=== PATIENT | male | born 1950 | race Caucasian/White ===

== ENCOUNTER 2019-01-24 09:57 | Inpatient (IN) | payer OTHER ==
[~2019-01-24] VITALS: Ht 188 cm; Wt 119.9 kg
[2019-01-24] MEDS ORDERED: SODIUM CHLORIDE 0.9% 1,000 ML IV ONE ×2 (10:29)
[2019-01-24] MEDS ORDERED: cefTRIAXone 1GM/50ML D5W 50 ML IV ONE (10:30)
[2019-01-24 11:20] LABS: Basophils # (auto) 0 uL; Basophils % (auto) 0.3 % (0.0-2.0); Eosinophils # (auto) 0 uL; Eosinophils % (auto) 0.1 % (0.0-7.0); Hematocrit 42.9 % (41.0-53.0); Hemoglobin 14.2 g/dL (13.5-17.5); Lymphocytes # (auto) 0.8 uL; Lymphocytes % (auto) 7.8 % (10.0-50.0); Mean Corpuscular Hemoglobin 32.3 pg (28.0-32.0); Mean Corpuscular Hgb Conc. 33.1 g/dL (32.0-36.0); Mean Corpuscular Volume 97.7 fL (80.0-100.0); Monocytes # (auto) 0.9 uL; Monocytes % (auto) 9.5 % (0.0-12.0); Neutrophils # (auto) 8.1 uL; Neutrophils % (auto) 82.3 % (37.0-80.0); Nucleated Red Blood Cells % 0.1 %; Platelet Count (auto) 159 10^3/uL (140-450); Red Blood Cells 4.39 10^6/uL (4.5-5.90); Red Cell Distribution Width 12.6 % (11.8-14.3); White Blood Cell 9.9 10^3/uL (4.4-10.8)
[2019-01-24 11:40] LABS: Albumin 2.9 g/dL (3.4-5.0); Calcium 9.3 mg/dL (8.5-10.1); Magnesium 2.2 mg/dL (1.6-2.6); Potassium 4.8 mmol/L (3.5-5.1)
[2019-01-24 11:45] LABS: BUN/Creatinine Ratio 15.9; Bilirubin, Total 0.5 mg/dL (0.2-1.0); Total Protein 7.9 g/dL (6.4-8.2)
[2019-01-24 11:50] LABS: INR 0.99 (0.9-1.15); Partial Thromboplastin Time 27.2 sec (23.78-33.04); Prothrombin Time 10.6 sec (9.27-12.13)
[2019-01-24 14:08] LABS: Urine Bacteria NONE SEEN /hpf (None Seen); Urine Blood Negative /uL (Negative); Urine Specific Gravity 1.024 (1.001-1.035); Urine WBC 1 /hpf (0 - 3)
[2019-01-24] MEDS ORDERED: IOHEXOL 350 MG/ML 100ML IJ ONE (14:08)
[2019-01-24] MEDS ORDERED: ENOXAPARIN SOD 80 MG/0.8ML SYRINGE SC ONE (14:15)
[2019-01-24] MEDS ORDERED: FUROSEMIDE 40 MG/4 ML VIAL IV ONE (14:15)
[2019-01-24] MEDS ORDERED: InsuLIN REG 1unit/0.01ml Soln (100units/ml) IV ONE (14:15)
[2019-01-24] MEDS ORDERED: DEXTROSE (50%) 50ML SYRG IV PRN (17:00)
[2019-01-24] MEDS ORDERED: MORPHINE SULF INJ 2 MG/ML SYRINGE 1ML IV PRN ×2 (17:00)
[2019-01-24] MEDS ORDERED: HYDROcodone-ACET 5/325MG TAB PO PRN (17:00)
[2019-01-24] MEDS ORDERED: DILTIAZEM HCL 120MG ER CAP PO ONE (17:00)
[2019-01-24] MEDS ORDERED: NITROGLYCERIN 0.4 MG SL TAB SL PRN (17:00)
[2019-01-24] MEDS ORDERED: VANCOMYCIN PER PHARMACY 0 MG IV SCH (17:00)
[2019-01-24] MEDS ORDERED: ACETAMINOPHEN 500 MG TAB PO PRN (17:00)
[2019-01-24] MEDS ORDERED: ONDANSETRON HCL 4 MG/2 ML VIAL IV PRN (17:00)
[2019-01-24] MEDS ORDERED: hydrALAZINE HCL 20 MG/ML VL IV PRN (17:00)
[2019-01-24] MEDS: SODIUM CHLORIDE 0.9% 1,000 ML IV SCH (17:47)
[2019-01-24] MEDS: InsuLIN REG 1unit/0.01ml Soln (100units/ml) SC SCH ×2 (17:59→23:07)
[2019-01-24] MEDS: ACCU-CHEK COMFORT CURVE STRIP VI SCH ×2 (17:59→23:07)
[2019-01-24] MEDS: VANCOMYCIN 1,250 MG in D5W 5% 250 ML IV SCH (18:53)
[2019-01-24] MEDS: ALBUTEROL SULF 2.5 MG/0.5ML(0.5%) NEB SOLN NEB SCH (19:45)
[2019-01-24] MEDS: IPRATROPIUM BROM 0.5 MG/2.5ML INH SOL NEB SCH (19:45)
[2019-01-24] MEDS ORDERED: methylPREDNISolone SOD SUCC 125 MG/2 ML VL IV ONE (19:45)
--- NOTE | 2019-01-24 19:45 | NUR ---
Respiratory note: PT APPEARED SOB ON NC6L. TX ADMINISTERED AT THIS TIME. BS DIM EXP WHEEZES T/O. SPO2 WAS 87%. POST TX WHEEZING DIMINISHED AND TX WAS EFFECTIVE. TITRATED LPM TO 4LPM AND NICOLE WELL. RN SPOKE WITH ABOUT GETTING PULMICORT ADDED TO SCHEDULED TX'S. PT STATES HE WEARS NC4L AT HOME AND TAKES TX'S, NORMAL SPO2 @ HOME IS 91-92%.
[2019-01-24] MEDS: PIPERACILLIN-TAZOB 3.375GM 100 ML IV SCH ×2 (20:15→23:07)
[2019-01-24] MEDS ORDERED: BUDESONIDE (INHALATION) 0.5 MG/2 ML NEB ONE (20:40)
[2019-01-24 21:17] VITALS: BP 111/66
[2019-01-24] MEDS: BUDESONIDE (INHALATION) 0.5 MG/2 ML NEB NEB SCH (21:17)
--- NOTE | 2019-01-24 21:37 | NUR ---
Admission Note Pt admitted to room 240-B in stable cond. Pt oriented to room and procedures and POC discussed with pt and pt verbalizes understanding. Bed is low, wheels are locked, and call light is with in reach.
[2019-01-24 22:00] VITALS: BP 106/69
[2019-01-24 22:34] VITALS: BP 106/69
[2019-01-24] MEDS: DOCUSATE SOD 100 MG CAP PO SCH (23:06)
[2019-01-24] MEDS: APIXABAN 2.5 MG TAB PO SCH (23:06)
[2019-01-25] MEDS: IPRATROPIUM BROM 0.5 MG/2.5ML INH SOL NEB SCH ×4 (00:20→18:48)
[2019-01-25] MEDS: ALBUTEROL SULF 2.5 MG/0.5ML(0.5%) NEB SOLN NEB SCH ×4 (00:20→18:47)
[2019-01-25] MEDS: SODIUM CHLORIDE 0.9% 1,000 ML IV SCH ×3 (03:00→23:11)
--- NOTE | 2019-01-25 03:35 | NUR ---
All leads and wires changed x 2 on tele box and still not picking up heart on the monitor. Pt is alert and awake and no s/s of any distress noted.
[2019-01-25 05:00] VITALS: BP 105/69
[2019-01-25 05:56] LABS: Basophils # (auto) 0 uL; Basophils % (auto) 0.1 % (0.0-2.0); Eosinophils # (auto) 0 uL; Hematocrit 40.1 % (41.0-53.0); Hemoglobin 13.4 g/dL (13.5-17.5); Lymphocytes # (auto) 0.5 uL; Lymphocytes % (auto) 6.8 % (10.0-50.0); Mean Corpuscular Hemoglobin 32.5 pg (28.0-32.0); Mean Corpuscular Hgb Conc. 33.5 g/dL (32.0-36.0); Mean Corpuscular Volume 97.1 fL (80.0-100.0); Monocytes # (auto) 0 uL; Monocytes % (auto) 0.6 % (0.0-12.0); Neutrophils # (auto) 6.8 uL; Neutrophils % (auto) 92.5 % (37.0-80.0); Nucleated Red Blood Cells % 0.1 %; Platelet Count (auto) 146 10^3/uL (140-450); Red Blood Cells 4.13 10^6/uL (4.5-5.90); Red Cell Distribution Width 12.7 % (11.8-14.3); White Blood Cell 7.4 10^3/uL (4.4-10.8)
[2019-01-25] MEDS: PIPERACILLIN-TAZOB 3.375GM 100 ML IV SCH ×3 (06:02→19:29)
[2019-01-25] MEDS: BUDESONIDE (INHALATION) 0.5 MG/2 ML NEB NEB SCH ×2 (06:14→18:48)
[2019-01-25 06:18] LABS: Albumin 2.6 g/dL (3.4-5.0); Calcium 9.1 mg/dL (8.5-10.1)
[2019-01-25 06:27] LABS: BUN/Creatinine Ratio 18.6; Bilirubin, Total 0.7 mg/dL (0.2-1.0); Total Protein 7.3 g/dL (6.4-8.2)
[2019-01-25 06:37] LABS: Potassium 5.7 mmol/L (3.5-5.1)
--- NOTE | 2019-01-25 06:41 | NUR ---
Hospitalist paged now for critical lab results, K+ = 5.7 and Troponin 0.511 and Neelam Tavarez [facility] returned page now, status report given and new orders to redraw labs and call with results.
--- NOTE | 2019-01-25 06:50 | NUR ---
Pharmacy called for Vancomycin not available. Addendum: 01/25/19 at 0712 by KIRA RODRIGUEZ RN Called the Pharmacy for the Vanco that is not available on the unit.
[2019-01-25] MEDS: ACCU-CHEK COMFORT CURVE STRIP VI SCH ×4 (07:11→21:36)
[2019-01-25] MEDS: InsuLIN REG 1unit/0.01ml Soln (100units/ml) SC SCH ×4 (07:11→21:39)
--- NOTE | 2019-01-25 07:20 | NUR ---
Opening Shift Note Assumed care of patient, awake and alert. No S/S of distress/SOB or pain. Instructed on POC and to call for assist PRN, will continue to monitor for changes Q1hr and PRN.
[2019-01-25 07:56] LABS: Albumin 2.6 g/dL (3.4-5.0); Calcium 9.2 mg/dL (8.5-10.1)
[2019-01-25 08:00] VITALS: BP 112/71
[2019-01-25 08:00] LABS: BUN/Creatinine Ratio 19.6; Bilirubin, Total 0.7 mg/dL (0.2-1.0); Total Protein 7.3 g/dL (6.4-8.2)
[2019-01-25 08:20] LABS: Potassium 5.6 mmol/L (3.5-5.1)
--- NOTE | 2019-01-25 08:29 | NUR ---
Hospitalist reyna Palmer still critical at 5.6. Addendum: 01/25/19 at 0613 by JOSE TORREZ RN Reicieved call back from hospitalistmarvin received
[2019-01-25 08:30] VITALS: BP_SYST 107; BP_SYST 112; BP_DIAS 68; BP_DIAS 71
[2019-01-25] MEDS: VANCOMYCIN 1,250 MG in D5W 5% 250 ML IV SCH ×2 (08:37→17:45)
[2019-01-25] MEDS ORDERED: SODIUM BICARBONATE 8.4 % INJ 50ML VIAL IV ONE (08:45)
[2019-01-25] MEDS ORDERED: CALCIUM GLUC 4.65meq/50ml D5AE 50 ML IV ONE (08:45)
[2019-01-25] MEDS ORDERED: InsuLIN REG 1unit/0.01ml Soln (100units/ml) IV ONE (08:45)
--- NOTE | 2019-01-25 10:18 | NUR ---
WOUND CARE NOTE: Wound care in to see patient per wound care request regarding "Bilateral Lower Extremity Cellulitis" that are noted present on admission. ED nurse took photograph of patient's BLE wounds upon admission for reference. Patient is 68 years old male with admitting diagnosis of Cellulitis to Bilateral Lower Extremity. Patient is resting in bed in Rm. 240B. He's awake, alert and oriented. He's in no stated pain at this time. Patient is able to assist in turning and repositioning. His current Artemio score is 17. Skin/wound assessment done with the assistance of patient' s nurse, CHINEDU Richter. Noted patient's BLE has edema, erythema with yellow, dry, hyperkeratotic crusty skin, moderate serous drainage noted with foul odor noted. His toe nails are thick, long and yellow. Open full thickness ulceration with no measurable depth noted to his Rt calf (7 x 10cm) and Lt. calf (9x8cm) R calf wound has serous drainage, L calf wound is has minimal sanguinous drainage. Patient states that he has has the BLE wounds "months ago" but he has not seen a doctor for it. Cleansed patient's BLE with wound cleanser, patted dry with gauze, applied Thera honey gauze to open wounds, covered with absorbent (Abd) pads. Applied Hydraguard cream to dry hyperkeratotic skin, wrapped with Kerlix and secured with tape. Wrapped legs with elastic bandages per MD order. 3x3cm dry scabbed lesion noted to his Rt upper arm, area is clean and dry, left open to air. Advised patient to show his dry wound to his doctor, he may need to forensic scientist as out patient. Patient's back and chest has dry, red patchy lesion, he states he has history of psoriasis. Patient's sacral and back has intact skin with blanchable redness to sacrum. Advised bedside nurse to apply Barrier cream to sacral/buttocks as preventative BID/PRN per MD order. Patient tolerated well. Patient's education given regarding skin/wound care,verbalized understanding. Bed in low position, call no on hand, bed alarm on. RECOMMENDATION: EOD/PRN dressing change to BLE; BID/PRN cleaning and application of Barrier cream to sacral/buttocks as preventative per MD order,frequent turning and repositioning schedule as condition permits, redistribute pressure points with pillows, elevate affected extremity on pillows, continue monitoring by wound care while patient is hospitalized. Addendum: 01/25/19 at 1425 by Earlene Russell RN Amended: Links added.
[2019-01-25] MEDS: PANTOPRAZOLE 40 MG/10 ML VIAL IV SCH (10:26)
[2019-01-25] MEDS: APIXABAN 2.5 MG TAB PO SCH ×2 (10:26→21:35)
[2019-01-25] MEDS: ASPirin-EC 81 mg tab PO SCH (10:27)
[2019-01-25] MEDS: ENOXAPARIN SOD 40 MG/0.4 ML SYRINGE SC SCH (10:27)
[2019-01-25] MEDS: DOCUSATE SOD 100 MG CAP PO SCH ×2 (10:27→21:35)
[2019-01-25] MEDS: DILTIAZEM HCL 120MG ER CAP PO SCH (10:27)
[2019-01-25 12:30] VITALS: BP 99/61
[2019-01-25 18:01] VITALS: BP 107/68
--- NOTE | 2019-01-25 19:30 | NUR ---
OPENING NOTE REPORT RECEIVED FROM DAY SHIFT RN PATIENT IS RESTING IN BED, A/OX4, ABLE TO ANSWER ALL QUESTIONS APPROPRIATELY. PHYSICAL ASSESSMENT DONE-SEE INTERVENTIONS. DRESSINGS C/D/I TO BILATERAL LOWER EXTREMITIES. POC FOR TONIGHT DISCUSSED WITH PATIENT, ALL QUESTIONS ANSWERED. WILL MONITOR Q1H PRN THROUGHOUT SHIFT, CALL LIGHT WITHIN REACH.
--- NOTE | 2019-01-25 21:00 | NUR ---
PATIENT REQUESTS NEW IV PLACEMENT CURRENT IV IN PLACE TO RIGHT AC, PATIENT STATES IT IS UNCOMFORTABLE. IV removal IV DC'd with clean sterile technique, catheter fully intact. Pressure dressing applied to site. Patient tolerated well.
--- NOTE | 2019-01-25 21:15 | NUR ---
IV insertion IV access obtained, via clean sterile technique by inserting 20 gauge catheter at LEFT FOREARM after 1 attempt. IV secured properly. No trauma to site. Patient tolerated well.
[2019-01-25 22:00] VITALS: BP 114/70
[2019-01-26] MEDS: PIPERACILLIN-TAZOB 3.375GM 100 ML IV SCH ×4 (00:03→17:47)
[2019-01-26 05:00] VITALS: BP 123/73
--- NOTE | 2019-01-26 05:20 | NUR ---
WHEEL AND CASTER REPAIRER AT BEDSIDE FOR VANCO TROUGH DRAW
[2019-01-26] MEDS: ALBUTEROL SULF 2.5 MG/0.5ML(0.5%) NEB SOLN NEB SCH ×3 (05:45→18:49)
[2019-01-26] MEDS: IPRATROPIUM BROM 0.5 MG/2.5ML INH SOL NEB SCH ×3 (05:45→18:49)
[2019-01-26] MEDS: BUDESONIDE (INHALATION) 0.5 MG/2 ML NEB NEB SCH ×2 (05:45→19:13)
--- NOTE | 2019-01-26 05:59 | NUR ---
CALLED DOWN TO LAB RE: MORNING VANCO TROUGH PER BACK LAB PERSONNEL, "WE WILL HAVE TO RESULTS IN ABOUT 25 MINUTES" THIS RN STRESSED ON THE IMPORTANCE OF A TIMELY RESULT, REFINERY OPERATOR HELPER STATES, "WELL I JUST RECEIVED IT SO I CAN'T GET THE RESULT ANY SOONER"
[2019-01-26] MEDS: VANCOMYCIN 1,250 MG in D5W 5% 250 ML IV SCH (06:22)
[2019-01-26] MEDS: ACCU-CHEK COMFORT CURVE STRIP VI SCH ×4 (06:38→22:17)
[2019-01-26] MEDS: InsuLIN REG 1unit/0.01ml Soln (100units/ml) SC SCH ×4 (06:39→22:29)
--- NOTE | 2019-01-26 07:28 | NUR ---
0600 margarita not hung: marie still running endorsed to day shift RN
--- NOTE | 2019-01-26 07:28 | NUR ---
CLOSING NOTE REPORT ENDORSED TO DAY SHIFT RN PT IS RESTING IN BED, NO S/S OF DISTRESS NOTED NO INCIDENT THROUGHOUT NIGHT, CALL LIGHT WITHIN REACH FALL PRECAUTIONS IN PLACE
[2019-01-26 09:00] VITALS: BP 112/71
[2019-01-26] MEDS: PANTOPRAZOLE 40 MG/10 ML VIAL IV SCH (09:02)
[2019-01-26] MEDS: DOCUSATE SOD 100 MG CAP PO SCH ×2 (09:03→22:00)
[2019-01-26] MEDS: ENOXAPARIN SOD 40 MG/0.4 ML SYRINGE SC SCH (09:03)
[2019-01-26] MEDS: APIXABAN 2.5 MG TAB PO SCH ×2 (09:03→22:17)
[2019-01-26] MEDS: ASPirin-EC 81 mg tab PO SCH (09:04)
[2019-01-26] MEDS: DILTIAZEM HCL 120MG ER CAP PO SCH (09:04)
[2019-01-26] MEDS: SODIUM CHLORIDE 0.9% 1,000 ML IV SCH ×2 (09:05→19:30)
--- NOTE | 2019-01-26 10:00 | NUR ---
PT REPORTS THAT HE IS DOING FINE AND DOES NOT NEED P.T.
--- NOTE | 2019-01-26 11:41 | NUR ---
NUTRITION CONSULT/ASSESSMENT NOTES Please refer to link notes of nutrition screen form filed under the intervention section of the plan of care for further details. Est. Needs: 2100 kcal to 2650 kcal (18-23 kcal/kgBW), 93 gms to 116 gms pro (0.8-1.0 gms/kgBW). Will continue to monitor pertinent labs and reassess nutrient need prn Thank you for this consult. Addendum: 01/26/19 at [address] Amended: Links added.
[2019-01-26 13:00] VITALS: BP 133/75
[2019-01-26 17:00] VITALS: BP 110/71
[2019-01-26] MEDS: VANCOMYCIN 750 MG in D5W 5% 250 ML IV SCH (21:14)
[2019-01-26 22:15] VITALS: BP 117/73
[2019-01-27] MEDS: PIPERACILLIN-TAZOB 3.375GM 100 ML IV SCH ×4 (00:17→17:28)
[2019-01-27 04:38] VITALS: BP 114/69
[2019-01-27] MEDS: SODIUM CHLORIDE 0.9% 1,000 ML IV SCH ×2 (05:00→15:00)
[2019-01-27] MEDS: InsuLIN REG 1unit/0.01ml Soln (100units/ml) SC SCH ×3 (06:45→17:00)
[2019-01-27] MEDS: ACCU-CHEK COMFORT CURVE STRIP VI SCH ×3 (06:45→17:22)
[2019-01-27] MEDS: BUDESONIDE (INHALATION) 0.5 MG/2 ML NEB NEB SCH ×2 (07:13→18:44)
[2019-01-27] MEDS: ALBUTEROL SULF 2.5 MG/0.5ML(0.5%) NEB SOLN NEB SCH ×3 (07:13→18:44)
[2019-01-27] MEDS: IPRATROPIUM BROM 0.5 MG/2.5ML INH SOL NEB SCH ×3 (07:13→18:43)
[2019-01-27] MEDS: VANCOMYCIN 750 MG in D5W 5% 250 ML IV SCH (08:53)
[2019-01-27] MEDS: PANTOPRAZOLE 40 MG/10 ML VIAL IV SCH (08:59)
[2019-01-27 09:00] VITALS: BP 113/59
[2019-01-27] MEDS: DOCUSATE SOD 100 MG CAP PO SCH (09:00)
[2019-01-27] MEDS: APIXABAN 2.5 MG TAB PO SCH (09:00)
[2019-01-27] MEDS: DILTIAZEM HCL 120MG ER CAP PO SCH (09:00)
[2019-01-27] MEDS: ENOXAPARIN SOD 40 MG/0.4 ML SYRINGE SC SCH (09:01)
--- NOTE | 2019-01-27 11:46 | NUR ---
DR SADE Nettles rounding on patient. Phone message left with MRI to inquire about test, no answer at this time. Per Dr Nettles MRI to be ordered STAT and call Dr Rucker with results. If MRI negative and patient cleared, discharge home today.
[2019-01-27] MEDS ORDERED: IOHEXOL 350 MG/ML 100ML IJ ONE (12:41)
[2019-01-27 13:00] VITALS: BP 102/68
--- NOTE | 2019-01-27 15:30 | NUR ---
WOUND CARE/PHOTOS Wound care provided and discharge photos taken.
--- NOTE | 2019-01-27 16:14 | NUR ---
CT REPORT AVAILABLE, DR BARROS PAGED.
--- NOTE | 2019-01-27 16:17 | NUR ---
DR BARROS RETURNED PAGE STATES HE WILL COME TO SEE PATIENT.
--- NOTE | 2019-01-27 19:51 | NUR ---
PAGED REGARDING PATIENTS DISCHARGE.
--- NOTE | 2019-01-27 19:58 | NUR ---
RETURNED PAGE, PATIENT IS CLEAR FOR DISCHARGE FROM NEUROLOGY.
[2019-01-27 20:11] VITALS: BP 114/67
--- NOTE | 2019-01-27 20:55 | NUR ---
Discharge instructions given as ordered. Encourage to follow up with PMD as instructed. After hours discharge, unable to schedule follow-up appointment for patient, Contact information provided. DR Rafa Salinas, [address] [facility]. [facility] [id number] Contact . All questions and concerns addressed. Patient verbalized understanding. Medication reconciliation form completed and copy given to patient. IV removed with catheter intact, pressure dressing applied. Telemetry unit returned to ICU. Patient taken to vehicle via wheelchair with all personal belongings, personal portable oxygen tank, accompanied by staff and family member([id number]). No distress noted at time of departure, vitals stable at time of discharge.
== END 2019-01-27 20:55 | disposition home or self-care (01) | DRG 602 ==
LOC: ER 09:57 → TELE 17:00 → TELE-EAST 21:39
PROVIDERS: ADMIT Nurse Practitioner Acute Care; ATTEND Family Medicine
DX: L03.115 Cellulitis of right lower limb (principal); I50.43 Acute on chronic combined systolic (congestive) and diastolic (congestive) heart failure; E44.0 Moderate protein-calorie malnutrition; D68.59 Other primary thrombophilia; J90 Pleural effusion, not elsewhere classified; L03.116 Cellulitis of left lower limb; E11.621 Type 2 diabetes mellitus with foot ulcer; E11.65 Type 2 diabetes mellitus with hyperglycemia; I11.0 Hypertensive heart disease with heart failure; I48.91 Unspecified atrial fibrillation; R74.8 Abnormal levels of other serum enzymes; I87.2 Venous insufficiency (chronic) (peripheral); E11.40 Type 2 diabetes mellitus with diabetic neuropathy, unspecified; W18.30XA Fall on same level, unspecified, initial encounter; R26.9 Unspecified abnormalities of gait and mobility; J43.9 Emphysema, unspecified; I27.20 Pulmonary hypertension, unspecified; R55 Syncope and collapse; L97.519 Non-pressure chronic ulcer of other part of right foot with unspecified severity; I87.309 Chronic venous hypertension (idiopathic) without complications of unspecified lower extremity; L89.899 Pressure ulcer of other site, unspecified stage; J84.10 Pulmonary fibrosis, unspecified; I50.82 Biventricular heart failure; E66.01 Morbid (severe) obesity due to excess calories; F17.200 Nicotine dependence, unspecified, uncomplicated; H57.02 Anisocoria; Z79.01 Long term (current) use of anticoagulants; Z79.4 Long term (current) use of insulin; Z79.82 Long term (current) use of aspirin; Z83.3 Family history of diabetes mellitus; Z82.3 Family history of stroke; Z91.14 Patient's other noncompliance with medication regimen; Y92.009 Unspecified place in unspecified non-institutional (private) residence as the place of occurrence of the external cause; Y93.89 Activity, other specified; Y99.8 Other external cause status; Z79.899 Other long term (current) drug therapy; Z98.42 Cataract extraction status, left eye; Z98.41 Cataract extraction status, right eye
CPT/HCPCS: 36415; 70450; 70498; 71045; 71250; 71275; 80053; 80061; 80202; 81001; 82962; 83036; 83735; 83880; 84132; 84443; 84484; 85025; 85379; 85610; 85730; 86141; 87040; 87077; 87186; 87205; 93306; 93886; 93925; 93970; 94640; 94761; 96365; 96372; 96375; C9113; G0378; J0610; J0696; J1815; J2543; J7060